=== PATIENT | male | born 1960 | race Caucasian/White ===

== ENCOUNTER 2018-03-16 02:27 | Emergency (ER) | payer BC, OTHER ==
[~2018-03-16] VITALS: Ht 182.9 cm; Wt 113.4 kg
[2018-03-16 03:15] LABS: Basophils # (auto) 0.2 uL; Basophils % (auto) 2.4 % (0.0-2.0); Eosinophils # (auto) 0.4 uL; Eosinophils % (auto) 4.8 % (0.0-7.0); Hematocrit 43.3 % (41.0-53.0); Hemoglobin 14.7 g/dL (13.5-17.5); Lymphocytes # (auto) 2.8 uL; Lymphocytes % (auto) 31.5 % (10.0-50.0); Mean Corpuscular Hemoglobin 28.7 pg (28.0-32.0); Mean Corpuscular Volume 84.5 fL (80.0-100.0); Monocytes # (auto) 0.9 uL; Monocytes % (auto) 9.7 % (0.0-12.0); Neutrophils # (auto) 4.7 uL; Neutrophils % (auto) 51.6 % (37.0-80.0); Nucleated Red Blood Cells % 0.1 %; Platelet Count (auto) 221 10^3/uL (140-450); Red Blood Cells 5.13 10^6/uL (4.5-5.90); Red Cell Distribution Width 14.5 % (11.8-14.3)
[2018-03-16 03:38] LABS: Alanine Aminotransferase 34 U/L (16-61); Albumin 3.5 g/dL (3.4-5.0); Anion Gap 9 (5-15); BUN/Creatinine Ratio 16.1; Blood Urea Nitrogen 20 mg/dL (7-18); Calcium 8.2 mg/dL (8.5-10.1); Carbon Dioxide 26 mmol/L (21-32); Chloride 112 mmol/L (98-107); GFR African American 78 mL/min; GFR Non-African American 64 mL/min; Glucose 106 mg/dL (74-106); Potassium 4.1 mmol/L (3.5-5.1); Sodium 147 mmol/L (136-145)
[2018-03-16 03:47] LABS: Alkaline Phosphatase 65 U/L (45-117); Aspartate Aminotransferase 20 U/L (15-37); Bilirubin, Total 0.2 mg/dL (0.2-1.0); Total Protein 7.1 g/dL (6.4-8.2)
[2018-03-16 05:40] VITALS: BP 142/87
== END 2018-03-16 05:45 | disposition home or self-care (01) ==
LOC: ER 02:32
DX: M54.12 Radiculopathy, cervical region (principal); M79.602 Pain in left arm
CPT/HCPCS: 36415; 70450; 71046; 80053; 84484; 85025; 93005

== ENCOUNTER 2018-11-29 08:32 | Inpatient (IN) | payer BC, OTHER ==
[~2018-11-29] VITALS: Ht 195.6 cm; Wt 111.7 kg
[2018-11-29 09:20] LABS: Basophils # (auto) 0.1 uL; Basophils % (auto) 0.6 % (0.0-2.0); Eosinophils # (auto) 0.2 uL; Eosinophils % (auto) 1.4 % (0.0-7.0); Hematocrit 44.5 % (41.0-53.0); Hemoglobin 15.2 g/dL (13.5-17.5); Lymphocytes # (auto) 1.7 uL; Lymphocytes % (auto) 11.7 % (10.0-50.0); Mean Corpuscular Hemoglobin 29.1 pg (28.0-32.0); Mean Corpuscular Hgb Conc. 34.1 g/dL (32.0-36.0); Mean Corpuscular Volume 85.4 fL (80.0-100.0); Monocytes # (auto) 1.5 uL; Monocytes % (auto) 10.8 % (0.0-12.0); Neutrophils # (auto) 10.8 uL; Neutrophils % (auto) 75.5 % (37.0-80.0); Platelet Count (auto) 214 10^3/uL (140-450); Red Blood Cells 5.21 10^6/uL (4.5-5.90); Red Cell Distribution Width 14.4 % (11.8-14.3); White Blood Cell 14.3 10^3/uL (4.4-10.8)
[2018-11-29 09:33] LABS: Albumin 3.7 g/dL (3.4-5.0); Potassium 4.4 mmol/L (3.5-5.1)
[2018-11-29 09:40] LABS: BUN/Creatinine Ratio 12.1; Bilirubin, Total 0.7 mg/dL (0.2-1.0); Calcium 8.9 mg/dL (8.5-10.1); Total Protein 7.5 g/dL (6.4-8.2)
[2018-11-29 12:44] LABS: Urine Bacteria NONE SEEN /hpf (None Seen); Urine Blood Negative /uL (Negative); Urine Mucus FEW (None Seen); Urine WBC 1 /hpf (0 - 3)
[2018-11-29] MEDS ORDERED: SODIUM CHLORIDE 0.9% 1,000 ML IVB ONE (12:52)
[2018-11-29 13:15] LABS: Magnesium 2.2 mg/dL (1.6-2.6)
[2018-11-29] MEDS ORDERED: cefTRIAXone 1GM/50ML D5W 50 ML IV ONE (13:45)
[2018-11-29] MEDS ORDERED: metroNIDAZOLE 500MG/100ML 100 ML IV ONE (13:45)
[2018-11-29] MEDS ORDERED: MORPHINE SULF INJ 2 MG/ML SYRINGE 1ML ONE (15:18)
[2018-11-29] MEDS ORDERED: ONDANSETRON HCL 4 MG/2 ML VIAL ONE (15:18)
[2018-11-29] MEDS ORDERED: ONDANSETRON HCL 4 MG/2 ML VIAL IV ONE ×2 (15:30→19:23)
[2018-11-29] MEDS ORDERED: MORPHINE SULFATE 4 MG/ML SYR/VIAL IV ONE (15:30)
[2018-11-29 16:00] LABS: Partial Thromboplastin Time 29.2 sec (23.78-33.04); Prothrombin Time 10.7 sec (9.27-12.13)
[2018-11-29] MEDS ORDERED: NITROGLYCERIN 0.4 MG SL TAB SL PRN (16:45)
[2018-11-29] MEDS ORDERED: ONDANSETRON HCL 4 MG/2 ML VIAL IV PRN (16:45)
[2018-11-29] MEDS ORDERED: MORPHINE SULFATE 4 MG/ML SYR/VIAL IV PRN (16:45)
[2018-11-29] MEDS: SODIUM CHLORIDE 0.9% 1,000 ML IV SCH (17:05)
[2018-11-29] MEDS: metroNIDAZOLE 500MG/100ML 100 ML IV SCH (17:07)
[2018-11-29] MEDS ORDERED: SUCCINYLCHOLINE CHLORIDE 20 MG/ML 10ML VIAL IV ONE (17:20)
[2018-11-29] MEDS ORDERED: MIDAZOLAM HCL 1MG/1ML-2 ML VIAL ONE (17:29)
[2018-11-29] MEDS ORDERED: fentaNYL CITRATE 100 MCG/2 ML VL ONE (17:29)
[2018-11-29] MEDS ORDERED: MEPERIDINE HCL (50 MG/ML) 1 ML VIAL ONE (17:29)
[2018-11-29] MEDS ORDERED: SODIUM CHLORIDE LOCK 10 ML ONE (17:30)
[2018-11-29] MEDS ORDERED: PROPOFOL 10 MG/ML 20 ML IV ONE (17:30)
[2018-11-29] MEDS ORDERED: ROCURONIUM 10MG/ML 10ML VIAL IV ONE (17:30)
[2018-11-29] MEDS: ACETAMINOPHEN 650 MG RECT SUPP PR PRN ×2 (17:37→23:27)
[2018-11-29] MEDS ORDERED: METOCLOPRAMIDE HCL 5MG/ml INJ 2ml VIAL IV ONE (18:45)
[2018-11-29] MEDS ORDERED: KETOROLAC TROMETH 30 MG/ML 1ML VIAL IV ONE (18:45)
[2018-11-29] MEDS ORDERED: HYDROmorphone HCL 2 MG/ML VL IV PRN (18:45)
[2018-11-29] MEDS ORDERED: ceFAZolin 1GM/50ML 50 ML IV ONE (19:23)
[2018-11-29] MEDS ORDERED: KETOROLAC TROMETH 60MG/2ML VIAL IM ONE (20:08)
[2018-11-29] MEDS ORDERED: GLYCOPYRROLATE 0.2 MG/ML 1ML VIAL ONE (20:08)
[2018-11-29] MEDS ORDERED: NEOSTIGMINE 1 MG/ML INJ (10mg/10ML VIAL) ONE (20:08)
[2018-11-29 22:15] VITALS: BP 121/68
--- NOTE | 2018-11-29 22:15 | NUR ---
Tele Admit from OR Received pt. via bed from OR. Pt. awake, alert, and oriented x4. Pt. is groggy and continuously closing eyes. No S/S of distress or SOB, pt. denies pain at this time. 2 medial abdominal incisions well approximated and opened to air. CHIQUIS drain present in lower medial abdomen, draining minimal reddish brown fluid. Pt. updated on POC, verbalized understanding. Instructed pt. on use of IS, verbalized understanding. Bed locked in lowest position, with call light within reach. Will continue to monitor Q1hr and PRN throughout the shift.
[2018-11-29 22:20] VITALS: BP 121/68
[2018-11-30] MEDS: metroNIDAZOLE 500MG/100ML 100 ML IV SCH ×5 (00:18→23:52)
[2018-11-30] MEDS: SODIUM CHLORIDE 0.9% 1,000 ML IV SCH ×3 (00:18→16:14)
[2018-11-30 05:00] VITALS: BP 107/68
[2018-11-30] MEDS: MORPHINE SULF INJ 2 MG/ML SYRINGE 1ML IV PRN ×2 (05:42→09:21)
--- NOTE | 2018-11-30 06:00 | NUR ---
CHIQUIS Drain Drained 50cc serosanguineous fluid
[2018-11-30 06:56] LABS: Basophils # (auto) 0 uL; Basophils % (auto) 0.1 % (0.0-2.0); Eosinophils # (auto) 0 uL; Hematocrit 39.3 % (41.0-53.0); Hemoglobin 13.1 g/dL (13.5-17.5); Lymphocytes # (auto) 0.8 uL; Lymphocytes % (auto) 4.9 % (10.0-50.0); Mean Corpuscular Hemoglobin 28.7 pg (28.0-32.0); Mean Corpuscular Hgb Conc. 33.2 g/dL (32.0-36.0); Mean Corpuscular Volume 86.2 fL (80.0-100.0); Monocytes # (auto) 0.6 uL; Monocytes % (auto) 3.9 % (0.0-12.0); Neutrophils # (auto) 15.1 uL; Neutrophils % (auto) 91.1 % (37.0-80.0); Platelet Count (auto) 183 10^3/uL (140-450); Red Blood Cells 4.56 10^6/uL (4.5-5.90); Red Cell Distribution Width 14.5 % (11.8-14.3); White Blood Cell 16.6 10^3/uL (4.4-10.8)
--- NOTE | 2018-11-30 07:40 | NUR ---
Opening Shift Note Assumed care of patient, Patient awake and alert laying quietly in bed. Patient is on room air with even and unlabored respirations. No S/S of distress/SOB or pain noted at this time. Bed is in lowest position, wheels are locked, side rails up x2, and call light is within reach. Patient C/O pain when getting up to the restroom D/T CHIQUIS drain moving. Patient provided with a urinal for comfort. Patient updated on POC and encouraged to call for assistance as needed. Will continue to monitor for changes Q1hr and PRN.
[2018-11-30 08:00] VITALS: BP 111/65
[2018-11-30] MEDS: PANTOPRAZOLE 40 MG/10 ML VIAL IV SCH (09:21)
[2018-11-30] MEDS: LEVOFLOXACIN 750MG 150 ML IV SCH (09:21)
--- NOTE | 2018-11-30 11:55 | NUR ---
DR. BELLA AT BEDSIDE INFORMED OF PAIN NOT BEING CONTROLLED AND ADBOMEN BEING DISTENDED. PATIENT IS TOLERATING CLEAR LIQUID DIET WITHOUT C/O N/V. PER DRTrinity HAVE PATIENT GET UP AND WALK MORE. WILL CONTROL PAIN AND THEN CARRY OUT ORDER. WILL CONTINUE TO MONITOR Q1H AND PRN.
[2018-11-30 12:00] VITALS: BP 130/70
[2018-11-30] MEDS: HYDROmorphone HCL 2 MG/ML VL IV PRN ×3 (12:16→21:20)
--- NOTE | 2018-11-30 13:30 | NUR ---
Patient up ambulating Ambulating patient around nurses station. Patient ambulating with slow steady gait. Patient made 2 laps around station. Patient tolerated well. Will continue to monitor q1h and PRN.
--- NOTE | 2018-11-30 15:30 | NUR ---
PATIENT UP AMBULATING AGAIN AROUND NURSES STATION. PATIENT TOLERATING WELL. WILL CONTINUE TO MONITOR.
[2018-11-30 16:00] VITALS: BP 110/69
--- NOTE | 2018-11-30 16:30 | NUR ---
DR. MUSTAFA AT BEDSIDE DR. MUSTAFA AT BEDSIDE ASSESSING PATIENT. INFORMED DR. MSUTAFA OF PAIN AND ABD DISTENTION. PER PATIENT IS TO BE NPO EXCEPT ICE CHIPS AND MEDS FOR NOW. AND RECEIVED ORDER FOR ATIVAN 0.5 MG IV Q6H PRN. [facility] PATIENT CURRENTLY C/O PAIN IN ABDOMEN 04/07 REQUESTING PAIN MEDICATION. WILL CONTINUE TO MONITOR Q1H AND PRN.
[2018-11-30] MEDS ORDERED: LORazepam 2MG/ML-1ML VIAL IV PRN (16:45)
--- NOTE | 2018-11-30 17:25 | NUR ---
CHIQUIS Drained Drained 50cc serosanguineous fluid. Abdominal incisions are C/D/I without signs of redness, edema, or discharge. Will continue to monitor.
--- NOTE | 2018-11-30 19:05 | NUR ---
Closing Note Patient awake and alert. No S/S of distress/SOB or pain. Care endorsed to Sophia ROSA.
[2018-11-30 22:00] VITALS: BP 120/65
[2018-12-01 05:15] VITALS: BP 122/76
[2018-12-01] MEDS: metroNIDAZOLE 500MG/100ML 100 ML IV SCH ×3 (06:26→18:29)
[2018-12-01] MEDS: HYDROmorphone HCL 2 MG/ML VL IV PRN ×2 (06:27→10:57)
[2018-12-01 06:58] LABS: Basophils # (auto) 0.1 uL; Basophils % (auto) 0.5 % (0.0-2.0); Eosinophils # (auto) 0 uL; Eosinophils % (auto) 0.3 % (0.0-7.0); Hematocrit 36.9 % (41.0-53.0); Hemoglobin 12.5 g/dL (13.5-17.5); Lymphocytes # (auto) 1.4 uL; Lymphocytes % (auto) 12.3 % (10.0-50.0); Mean Corpuscular Hemoglobin 28.9 pg (28.0-32.0); Mean Corpuscular Hgb Conc. 33.8 g/dL (32.0-36.0); Mean Corpuscular Volume 85.4 fL (80.0-100.0); Monocytes # (auto) 0.8 uL; Monocytes % (auto) 7.2 % (0.0-12.0); Neutrophils # (auto) 8.9 uL; Neutrophils % (auto) 79.7 % (37.0-80.0); Nucleated Red Blood Cells % 0.1 %; Platelet Count (auto) 183 10^3/uL (140-450); Red Blood Cells 4.32 10^6/uL (4.5-5.90); White Blood Cell 11.1 10^3/uL (4.4-10.8)
[2018-12-01 07:23] LABS: Calcium 7.8 mg/dL (8.5-10.1); Potassium 3.8 mmol/L (3.5-5.1)
[2018-12-01 07:29] LABS: Albumin 2.7 g/dL (3.4-5.0); BUN/Creatinine Ratio 16.3; Bilirubin, Total 0.4 mg/dL (0.2-1.0); Total Protein 6.5 g/dL (6.4-8.2)
--- NOTE | 2018-12-01 07:30 | NUR ---
Opening Shift Note Assumed care of patient, Patient awake and alert laying quietly in bed. Patient is on room air with even and unlabored respirations. No S/S of distress/SOB or pain noted at this time. Bed is in lowest position, wheels are locked, side rails up x2, and call light is within reach. Patient updated on POC and encouraged to call for assistance as needed. Will continue to monitor for changes Q1hr and PRN.
--- NOTE | 2018-12-01 08:45 | NUR ---
PATIENT UP AMBULATING AROUND NURSES STATION PATIENT UP AMBULATING AROUND NURSES STATION. PATIENT AMBULATING WITH STEADY GAIT. PATIENT TOLERATED WELL. WILL CONTINUE TO MONITOR Q1H AND PRN.
[2018-12-01 09:00] VITALS: BP 114/73
--- NOTE | 2018-12-01 10:45 | NUR ---
DR. MUSTAFA AT BEDSIDE DR. MUSTAFA AT BEDSIDE EVALUATING PATIENT. RECEIVED ORDER FOR CLEAR LIQUID DIET. ORDERS CARRIED OUT IN [facility]. WILL CONTINUE TO MONITOR Q1H AND PRN.
[2018-12-01] MEDS: LEVOFLOXACIN 750MG 150 ML IV SCH (10:56)
[2018-12-01] MEDS: PANTOPRAZOLE 40 MG/10 ML VIAL IV SCH (10:58)
[2018-12-01] MEDS: SODIUM CHLORIDE 0.9% 1,000 ML IV SCH ×3 (11:08→18:34)
[2018-12-01] MEDS ORDERED: HYDROmorphone HCL 2 MG/ML VL IV PRN (11:45)
[2018-12-01 13:00] VITALS: BP 126/85
--- NOTE | 2018-12-01 14:30 | NUR ---
Patient expressing extreme abdominal pain Patient expressing severe abdominal pain 10/10 and stating "It feels like something popped". Pain medication, Dilaudid, administered. Incision site assessed. No dehisce of incision noted, no edema or bleeding present. Bowel sounds present. Will notify Dr. Hair. Will continue to monitor q1h and prn.
--- NOTE | 2018-12-01 14:45 | NUR ---
RECEIVED RETURN CALL FROM DR. BELLA SPOKE WITH DR. BELLA, UPDATED HIM ON PATIENT STATUS. NO NEW ORDERS RECEIVED AT THIS TIME, CONTINUE CURRENT POC FOR NOW. PATIENT FEELING BETTER AFTER PAIN MEDICATION, PAIN NOW 5/10 IN ABDOMEN. WILL CONTINUE TO MONITOR Q1H AND PRN.
[2018-12-01 17:00] VITALS: BP 126/73
--- NOTE | 2018-12-01 19:00 | NUR ---
OPENING NOTE ASSUMED CARE OF PATIENT. PATIENT IS A&OX4. CALL LIGHT IS IN REACH, BED IS AT LOWEST LEVEL.
--- NOTE | 2018-12-01 19:02 | NUR ---
Closing Note Patient awake and alert. No S/S of distress/SOB. Report given. Care endorsed to Sophia ROSA.
[2018-12-01] MEDS: HYDROcodone-ACET 5/325MG TAB PO PRN (19:43)
[2018-12-01 22:09] VITALS: BP 142/82
[2018-12-02] MEDS: SODIUM CHLORIDE 0.9% 1,000 ML IV SCH ×2 (01:05→14:25)
[2018-12-02] MEDS: metroNIDAZOLE 500MG/100ML 100 ML IV SCH ×5 (02:28→23:55)
[2018-12-02] MEDS: HYDROcodone-ACET 5/325MG TAB PO PRN ×2 (03:22→19:47)
[2018-12-02 05:45] VITALS: BP 139/69
[2018-12-02 07:06] LABS: Basophils # (auto) 0.1 uL; Basophils % (auto) 0.7 % (0.0-2.0); Eosinophils # (auto) 0.3 uL; Eosinophils % (auto) 3.7 % (0.0-7.0); Hemoglobin 12.9 g/dL (13.5-17.5); Lymphocytes # (auto) 1.5 uL; Lymphocytes % (auto) 18.8 % (10.0-50.0); Mean Corpuscular Hgb Conc. 33.9 g/dL (32.0-36.0); Mean Corpuscular Volume 85.7 fL (80.0-100.0); Monocytes # (auto) 0.9 uL; Monocytes % (auto) 10.9 % (0.0-12.0); Neutrophils # (auto) 5.2 uL; Neutrophils % (auto) 65.9 % (37.0-80.0); Platelet Count (auto) 200 10^3/uL (140-450); Red Blood Cells 4.44 10^6/uL (4.5-5.90); Red Cell Distribution Width 14.2 % (11.8-14.3); White Blood Cell 7.9 10^3/uL (4.4-10.8)
[2018-12-02 07:24] LABS: BUN/Creatinine Ratio 11.8; Calcium 8.2 mg/dL (8.5-10.1); Potassium 4.2 mmol/L (3.5-5.1)
--- NOTE | 2018-12-02 07:25 | NUR ---
Opening Shift Note Patient awake and alert; denied pain no sign of distress. S/P appendectomy. CHIQUIS drain to mid lower abdomen draining serosanguineous fluid, insertion site no sign of infection. Patient reported mild pain 4/10 tolerable. Patient ambulates without difficulty. POC discussed. Safety measures in place. Will continue to monitor.
[2018-12-02 09:00] VITALS: BP 135/84
[2018-12-02] MEDS: LEVOFLOXACIN 750MG 150 ML IV SCH (10:00)
[2018-12-02] MEDS: PANTOPRAZOLE 40 MG/10 ML VIAL IV SCH (10:00)
[2018-12-02] MEDS ORDERED: LACTULOSE 20Gm/30ML SOLN PO ONE (11:15)
[2018-12-02] MEDS ORDERED: HYDROmorphone HCL 2 MG/ML VL IV PRN (11:15)
[2018-12-02] MEDS ORDERED: DOCUSATE SOD 100 MG CAP PO ONE (11:15)
--- NOTE | 2018-12-02 11:15 | NUR ---
LINNEA AT BEDSIDE.
--- NOTE | 2018-12-02 11:20 | NUR ---
FAMILY MEMBER DELIVERED A GIFT FOR THE PATIENT.
--- NOTE | 2018-12-02 11:37 | NUR ---
FRIEND AT BEDSIDE, PATIENT IN [employer]. PATIENT AMBULATED TO THE RESTROOM WITHOUT DISTRESS.
--- NOTE | 2018-12-02 12:00 | NUR ---
DR MOON REMY
[2018-12-02 13:00] VITALS: BP 138/75
--- NOTE | 2018-12-02 13:30 | NUR ---
PATIENT REPORTED 2 LARGE BMS; REFUSED LACTULOSE AND COLACE.
--- NOTE | 2018-12-02 14:07 | NUR ---
RE-PAGED DR MUSTAFA
--- NOTE | 2018-12-02 15:00 | NUR ---
OFF WORK NOTE PROVIDED TO PATIENT APPROVED BY DR BELLA.
--- NOTE | 2018-12-02 18:08 | NUR ---
MD MUSTAFA RETURNED CALL STATED HE WILL SEE THE PATIENT TONIGHT TO REMOVE THE CHIQUIS DRAIN PRIOR TO DISCHARGE. PATIENT UPDATED ON POC
--- NOTE | 2018-12-02 19:30 | NUR ---
Opening Shift Note Assumed care of patient, awake and alert. No S/S of distress/SOB or pain. Family at bedside. Instructed on POC and to call for assist PRN, will continue to monitor for changes Q1hr and PRN.
--- NOTE | 2018-12-02 20:56 | NUR ---
Received call from Dr. Serrano. Unable to come tonight, will come in the AM to remove drain and D/C patient.
[2018-12-02 22:00] VITALS: BP 142/75
[2018-12-03 05:00] VITALS: BP 122/74
[2018-12-03] MEDS: metroNIDAZOLE 500MG/100ML 100 ML IV SCH (05:40)
[2018-12-03] MEDS: SODIUM CHLORIDE 0.9% 1,000 ML IV SCH (05:40)
--- NOTE | 2018-12-03 07:00 | NUR ---
Opening Shift Note Assumed care of patient, awake and alert. No S/S of distress/SOB or pain. Instructed on POC and to call for assist PRN, will continue to monitor for changes Q1hr and PRN.
--- NOTE | 2018-12-03 07:06 | NUR ---
25 ml of serosanguineous drainage from CHIQUIS drain removed. No c/o pain throughout the night and no temp noted in the am.
[2018-12-03 08:00] VITALS: BP 128/75
[2018-12-03 08:36] VITALS: BP 128/75
--- NOTE | 2018-12-03 09:01 | NUR ---
DR. MUSTAFA PAGED CONCERNING PATIENT'S DRAIN REMOVAL FOR DISCHARGE. WILL AWAIT FURTHER COMMUNICATION FROM DR. MUSTAFA.
[2018-12-03] MEDS: PANTOPRAZOLE 40 MG/10 ML VIAL IV SCH (10:19)
[2018-12-03] MEDS: LEVOFLOXACIN 750MG 150 ML IV SCH (10:19)
--- NOTE | 2018-12-03 11:15 | NUR ---
DR. MUSTAFA BEDSIDE TO REMOVE CHIQUIS DRAIN.
[2018-12-03 11:20] VITALS: BP 128/75
--- NOTE | 2018-12-03 11:20 | NUR ---
Discharge instructions given as ordered. Encourage to follow up with PMD as instructed. All questions and concerns addressed. Patient verbalized understanding. IV removed with catheter intact, pressure dressing applied, CHIQUIS drain removed by Dr. Serrano. Patient ambulated to vehicle with all personal belongings, accompanied by family member. No distress noted at time of departure.
== END 2018-12-03 11:20 | disposition home or self-care (01) | DRG 853 ==
LOC: ER 08:32 → TELE 16:40 → TELE-EAST 22:23 → EAST 12-01 11:53
PROVIDERS: ADMIT Nurse Practitioner Acute Care; ATTEND Internal Medicine
PROC: 0W9J40Z Drainage of Pelvic Cavity with Drainage Device, Percutaneous Endoscopic Approach (ICD-10-PCS; 2018-11-29)
PROC: 0DTJ4ZZ Resection of Appendix, Percutaneous Endoscopic Approach (ICD-10-PCS; principal; 2018-11-29 19:25)
DX: A41.9 Sepsis, unspecified organism (principal); K35.33 Acute appendicitis with perforation, localized peritonitis, and gangrene, with abscess; K80.00 Calculus of gallbladder with acute cholecystitis without obstruction; K57.90 Diverticulosis of intestine, part unspecified, without perforation or abscess without bleeding; E66.9 Obesity, unspecified; K38.1 Appendicular concretions; K76.0 Fatty (change of) liver, not elsewhere classified; Z68.29 Body mass index [BMI] 29.0-29.9, adult
CPT/HCPCS: 36415; 71045; 71046; 74176; 80048; 80053; 81001; 82150; 83690; 83735; 83880; 85025; 85610; 85730; 86850; 86900; 86901; 93005; 94761; 96365; 96367; A6257; C9113; G0378; J0330; J0690; J0696; J1885; J1956; J2250; J2405; J2704; J3490

== ENCOUNTER 2025-01-19 15:20 | Emergency (ER) | payer BC, OTHER ==
[~2025-01-19] VITALS: Ht 182.9 cm; Wt 105.0 kg
[2025-01-19 15:33] VITALS: PULSE 73; RESP 16; O2SAT 91
[2025-01-19] MEDS: chlordiazePOXIDE HCL 25 MG CAP PO ONE (16:00)
[2025-01-19] MEDS: LORazepam 2MG/ML-1ML VIAL IV ONE (16:00)
--- NOTE | 2025-01-19 16:36 | ED.PDOC ---
Mult. trauma (HPI) HPI Comments 64 year old male DANITA presents to the ED with chief complaint of head injury s/p fall. EMS reports that the patient was at work in [employer] when he had accidentally fell from approximately the 3rd rung on his ladder, hitting the back of his head on cement. EMS relays that the patient did not lose consciousness after the injury. EMS states patient has been slow to respond since the injury and is currently A/O x 2. Patient denies any LOC, nausea, vomiting, back injury, or neck injury. He does note a severe occipital headache and dizziness. Chief Complaint: Head Injury Time Seen by MD: 16:30 Primary Care Provider: SVETA Reviewed notes: Nurses Notes, Limb Driver Notes, Medications, Allergies Allergies: Coded Allergies: NO KNOWN ALLERGIES (Unverified , 03/16/18) Home Meds No Active Prescriptions or Reported Meds Information Source: Patient, Emergency Med Personnel Mode of Arrival: EMS Severity: Moderate Timing: Hours Duration: Since onset Prehospital treatment: None Location: Head Mechanism: Fall Past Medical History PAST MEDICAL HISTORY: High Lipids Surgical History: Denies all surgeries Family History Family History: Unknown Social History Smoker: Non-Smoker Alcohol: Denies ETOH Use Drugs: Denies Drug Use Lives In: Home Constitutional: denies: chills, diaphoresis, fatigue, fever, malaise, sweats, weakness, others EENTM: denies: blurred vision, double vision, ear bleeding, ear discharge, ear drainage, ear pain, ear ringing, eye pain, eye redness, hearing loss, mouth pain, mouth swelling, nasal discharge, nose bleeding, nose congestion, nose pain, photophobia, tearing, throat pain, throat swelling, voice changes, others Respiratory: denies: cough, hemoptysis, orthopnea, SOB at rest, shortness of breath, SOB with excertion, stridor, wheezing, others Cardiovascular: denies: chest pain, dizzy spells, diaphoresis, Dyspnea on exertion, edema, irregular heart beat, left arm pain, lightheadedness, palpitations, PND, syncope, others Gastrointestinal: denies: abdomen distended, abdominal pain, blood streaked bowels, constipated, diarrhea, dysphagia, difficulty swallowing, hematemesis, melena, nausea, poor appetite, poor fluid intake, rectal bleeding, rectal pain, vomiting, others Genitourinary: denies: burning, dysuria, flank pain, frequency, hematuria, incontinence, penile discharge, penile sore, pain, testicle pain, testicle swelling, urgency, others Neurological: denies: dizziness, fainting, headache, left sided numbness, left sided weakness, numbness, paresthesia, pre-existing deficit, right sided numbness, right sided weakness, seizure, speech problems, tingling, tremors, weakness, others Musculoskeletal: denies: back pain, gout, joint pain, joint swelling, muscle pain, muscle stiffness, neck pain, others Integumetry: reports: laceration (To scalp); denies: bruises, change in color, change in hair/nails, dryness, lesions, lumps, rash, wounds, others Allergic/Immunocompromised: denies: Difficulty Healing, Frequent Infections, Hives, Itching, others Hematologic/Lymphatic: denies: anemia, blood clots, easy bleeding, easy bruising, swollen glands, others Endocrine: denies: excessive hunger, excessive sweating, excessive thirst, excessive urination, flushing, intolerance to cold, intolerance to heat, unexplained weight gain, unexplained weight loss, others Psychiatric: denies: anxiety, bipolar disorder, depression, hopeless, panic disorder, schizophrenia, sleepless, suicidal, others All Other Systems: Reviewed and Negative Physical Exam General Appearance: No Apparent Distress HEENT: PERRL/EOMI, Other (Approximate 4 x 4 cm Occipital abrasion with underlying soft tissue swelling/hematoma) Neck: Full Range of Motion, Supple, Other (Midline and paraspinal soft tissue neck tenderness) Respiratory: Chest Non-Tender, Lungs Clear, No Accessory Muscle Use, No Respiratory Distress, Normal Breath Sounds Cardiovascular: No Edema, No JVD, Regular Rate/Rhythm Breast Exam: Deferred Gastrointestinal: Non Tender, Soft Genitalia: Deferred Pelvic: Deferred Rectal: Deferred Extremities: Normal range of motion, Non-tender, No pedal edema Neurologic: Alert (Oriented x2), Normal Affect, Normal Mood, Other (Moves all extremities. No gross focal deficit.) Cerebellar Function: NOT DONE Reflexes: NOT DONE Skin: Dry, Warm, Other (Occipital abrasion/hematoma, right elbow superficial abrasion without underlying bony tenderness) Lymphatic: NOT DONE Was a procedure done? Was a procedure done?: No Differential Diagnosis Multiple Trauma: Closed Head Injury, Fractures, Cerebral Contusion, Spine Injury, Hematoma, Encephalopathy Neck Injury: Cervical Muscle Spasm, Cervical Sprain, Cervical Strain, Cervical Fracture, Spinal Cord Injury X-Ray, Labs, Meds, VS Vital Signs Date Time Temp Pulse Resp B/P (MAP) Pulse Ox O2 Delivery O2 Flow Rate FiO2 01/19/25 20:00 71 16 141/70 (93) 94 01/19/25 18:01 70 15 148/77 (100) 94 01/19/25 18:00 70 16 148/77 (100) 94 01/19/25 17:00 66 16 154/86 (108) 93 01/19/25 16:06 72 01/19/25 15:33 73 16 91 Room Air* 0 21 01/19/25 15:33 98.1 73 16 161/90 (113) 91 98.1 01/19/25 15:23 98.1 74 18 169/102 (124) 98 98.1 Lab Test 01/19/25 18:30 01/19/25 16:19 Range/Units Urine Color Light-yellow Yellow Urine Clarity Clear Clear Urine pH 5.5 5.0-9.0 Urine Specific [place] 1.015 1.001-1.035 Urine Protein Negative Negative Urine Ketones Negative Negative Urine Blood Negative Negative /uL Urine Nitrite Negative Negative Urine Bilirubin Negative Negative Urine Urobilinogen Normal Negative mg/dL Urine Leukocyte Esterase Negative Negative /uL Urine RBC <1 0 - 3 /hpf Urine Microscopic WBC 1 0-3 /HPF Urine Squamous Epithelial Cells None seen <5 /hpf Urine Bacteria None seen None Seen /hpf Urine Glucose Normal Normal mg/dL White Blood Count 7.8 4.4-10.8 10^3/uL Red Blood Count 5.08 4.5-5.90 10^6/uL Hemoglobin 14.4 13.5-17.5 g/dL Hematocrit 42.9 41.0-53.0 % Mean Corpuscular Volume 84.6 80.0-100.0 fL Mean Corpuscular Hemoglobin 28.4 28.0-32.0 pg Mean Corpuscular Hemoglobin Concent 33.5 32.0-36.0 g/dL Red Cell Distribution Width 14.6 H 11.8-14.3 % Platelet Count 214 140-450 10^3/uL Mean Platelet Volume 7.7 6.9-10.8 fL Neutrophils (%) (Auto) 61.0 37.0-80.0 % Lymphocytes (%) (Auto) 24.6 10.0-50.0 % Monocytes (%) (Auto) 9.2 0.0-12.0 % Eosinophils (%) (Auto) 4.1 0.0-7.0 % Basophils (%) (Auto) 1.1 0.0-2.0 % Neutrophils # (Auto) 4.8 1.6-8.6 10 ^3/uL Lymphocytes # (Auto) 1.9 0.4-5.4 10 ^3/uL Monocytes # (Auto) 0.7 0-1.3 10 ^3/uL Eosinophils # (Auto) 0.3 0-0.8 10 ^3/uL Basophils # (Auto) 0.1 0-0.2 10 ^3/uL Nucleated Red Blood Cells 0.1 % Sodium Level 142 136-145 mmol/L Potassium Level 3.9 3.5-5.1 mmol/L Chloride Level 111 H 98-107 mmol/L Carbon Dioxide Level 24 20-31 mmol/L Anion Gap 7 5-15 Blood Urea Nitrogen 18 9-23 mg/dL Creatinine 1.11 0.700-1.30 mg/dL Glomerular Filtration Rate Calc 75 >90 mL/min BUN/Creatinine Ratio 16.2 10.0-20.0 Serum Glucose 99 74-106 mg/dL Calcium Level 10.1 8.7-10.4 mg/dL PROCEDURE(s): HWOCT - HEAD WITHOUT CONTRAST REASON: head injury s/p fall ORDER NUMBER(s): [id number], ACCESSION NUMBER(s): [id number] CLINICAL INFORMATION: Head injury status post fall. TECHNIQUE: Axial imaging was obtained through the brain without contrast. Coronal and sagittal reformatted images were obtained, reviewed, and stored. One or more of the following dose reduction techniques were used: Automated exposure control. Adjustment of mA and/or kV according to patient size. CTDIvol = 64.08 mGy DLP = 1262.21 mGy-cm COMPARISON: None FINDINGS: There is no acute intracranial hemorrhage or extraaxial fluid collection. No mass effect or midline shift. The ventricles and sulci are within normal limits in size for age. Basal cisterns are patent. The calvarium is unremarkable. Mucosal thickening and partial opacification of the paranasal sinuses. IMPRESSION: 1. No CT evidence of acute intracranial abnormality. 2. Paranasal sinusitis. EDURE(s): CS2 - CERVICAL WITHOUT CONTRAST REASON: neck pain s/p fall ORDER NUMBER(s): [id number], ACCESSION NUMBER(s): [id number] CLINICAL HISTORY: neck pain status post fall injury COMPARISON: None TECHNIQUE: Axial CT images of the cervical spine were obtained without IV contrast. Coronal and sagittal reformatted images were obtained. All CT scans at this medical facility are performed using dose modulation techniques as appropriate to a performed exam including the following: Automated exposure control was utilized; adjustment of the MA and/or KV according to patient size; and use of iterative reconstruction technique. CTDIvol = 26.98, 0.41, 0.07 mGy DLP = 591.7 mGy-cm FINDINGS: Bones: Straightening of the normal cervical lordosis. Minimal retrolisthesis of C3 on C4. Vertebral body heights are maintained. Posterior elements are intact. No acute fracture. Severe disc space narrowing at C3-C4 with associated endplate sclerosis and endplate spurring. Moderate disc space narrowing at C5-C6 with associated endplate sclerosis and endplate spurring. Multilevel facet and uncinate hypertrophy with areas of moderate neural foraminal stenosis. Paraspinal soft tissues: Prevertebral and paraspinal soft tissues are unremarkable. Other: No other significant findings. IMPRESSION: 1. No evidence of acute fracture in the cervical spine. 2. Straightening of the normal cervical lordosis with minimal retrolisthesis of C3 on C4. 3. Degenerative disc disease and facet disease in the cervical spine as described above. X-Ray, Labs, Meds, VS Comment 64-year-old male with a history of dyslipidemia presenting with occipital head pain, hematoma and altered mental status after a fall from a ladder. Vitals remarkable for BP 169/102 Exam remarkable for an occipital abrasion/hematoma , midline and paraspinal cervical tenderness Rhythm strip independently interpreted by me: Sinus rhythm, rate 74, no ectopy. CT head IMPRESSION: 1. No CT evidence of acute intracranial abnormality. 2. Paranasal sinusitis. CT cervical spine IMPRESSION: 1. No evidence of acute fracture in the cervical spine. 2. Straightening of the normal cervical lordosis with minimal retrolisthesis of C3 on C4. 3. Degenerative disc disease and facet disease in the cervical spine as described above. CBC, basic metabolic panel and UA unremarkable Patient treated with the following in the ED: Tdap 0.5 mL, Toradol 30 mg IV, [place] 5/325 mg 2 tabs p.o., Zofran 4 mg IV, meclizine 50 mg p.o. On re-evaluation, patient is oriented x4 but still feels extremely dizzy. Plan is to admit/transfer the patient for observation and Neurology evaluation. Case discussed with Dr. Mo at [facility], who will attempt to arrange for transfer to [place]. EKG has been ordered per Dr. Mo's request. Authorization [id number] Time of 1ST Reevaluation: 17:30 Reevaluation 1ST: Unchanged Time of 2ND Reevaluation: 20:45 Reevaluation 2ND: Improved Patient Education/Counseling: Diagnosis, Treatment Family Education/Counseling: No Family Present Departure 1 Departure Time of Disposition: 20:56 Impression: Primary Impression: Head injury Qualified Codes: S09.90XA - Unspecified injury of head, initial encounter Additional Impression: Traumatic encephalopathy Disposition: ADMITTED INPATIENT Admit to: Tele Condition: Guarded e-Prescriptions No Active Prescriptions or Reported Meds Critical Care Note Critical Care Time?: No Stability Stability form required: No Heart Score Heart Score: Heart Score Response (Comments) Value History N/A 0 EKG N/A 0 Age N/A 0 Risk Factors N/A 0 Troponin N/A 0 Total 0 I personally scribed for JESI SHAH MD ([email or web address]) on 01/19/25 at 16:36. Electronically submitted by Oumar Penn ([email or web address]). I personally scribed for JESI SHAH MD ([email or web address]) on 01/19/25 at 19:46. Electronically submitted by Franko Muñoz ([email or web address]). JESI SHAH MD Jan 19, 2025 16:36
--- NOTE | 2025-01-19 16:40 | DVH ---
CLINICAL INFORMATION: Head injury status post fall. TECHNIQUE: Axial imaging was obtained through the brain without contrast. Coronal and sagittal refo rmatted images were obtained, reviewed, and stored. One or more of the following dose reduction tech niques were used: Automated exposure control. Adjustment of mA and/or kV according to patient size. CTDIvol = 64.08 mGy DLP = 1262.21 mGy-cm COMPARISON: None FINDINGS: There is no acute intracranial hemorrhage or extraaxial fluid collection. No mass effect or midline s hift. The ventricles and sulci are within normal limits in size for age. Basal cisterns are patent. The calvarium is unremarkable. Mucosal thickening and partial opacification of the paranasal sinu ses. IMPRESSION: 1. No CT evidence of acute intracranial abnormality. 2. Paranasal sinusitis.
[2025-01-19 16:46] LABS: Basophils # (auto) 0.1 10 ^3/uL (0-0.2); Basophils % (auto) 1.1 % (0.0-2.0); Eosinophils # (auto) 0.3 10 ^3/uL (0-0.8); Eosinophils % (auto) 4.1 % (0.0-7.0); Hematocrit 42.9 % (41.0-53.0); Hemoglobin 14.4 g/dL (13.5-17.5); Lymphocytes # (auto) 1.9 10 ^3/uL (0.4-5.4); Lymphocytes % (auto) 24.6 % (10.0-50.0); Mean Corpuscular Hemoglobin 28.4 pg (28.0-32.0); Mean Corpuscular Hgb Conc. 33.5 g/dL (32.0-36.0); Mean Corpuscular Volume 84.6 fL (80.0-100.0); Monocytes # (auto) 0.7 10 ^3/uL (0-1.3); Monocytes % (auto) 9.2 % (0.0-12.0); Neutrophils # (auto) 4.8 10 ^3/uL (1.6-8.6); Nucleated Red Blood Cells % 0.1 %; Platelet Count (auto) 214 10^3/uL (140-450); Red Blood Cells 5.08 10^6/uL (4.5-5.90); Red Cell Distribution Width 14.6 % (11.8-14.3); White Blood Cell 7.8 10^3/uL (4.4-10.8)
--- NOTE | 2025-01-19 16:54 | DVH ---
CLINICAL HISTORY: neck pain status post fall injury COMPARISON: None TECHNIQUE: Axial CT images of the cervical spine were obtained without IV contrast. Coronal and sagit john reformatted images were obtained. All CT scans at this medical facility are performed using dose modulation techniques as appropriate to a performed exam including the following: Automated exposure control was utilized; adjustment of the MA and/or KV according to patient size; and use of iterative reconstruction technique. CTDIvol = 26.98, 0.41, 0.07 mGy DLP = 591.7 mGy-cm FINDINGS: Bones: Straightening of the normal cervical lordosis. Minimal retrolisthesis of C3 on C4. Vertebral b joan heights are maintained. Posterior elements are intact. No acute fracture. Severe disc space narro wing at C3-C4 with associated endplate sclerosis and endplate spurring. Moderate disc space narrowing at C5-C6 with associated endplate sclerosis and endplate spurring. Multilevel facet and uncinate hyp ertrophy with areas of moderate neural foraminal stenosis. Paraspinal soft tissues: Prevertebral and paraspinal soft tissues are unremarkable. Other: No other significant findings. IMPRESSION: 1. No evidence of acute fracture in the cervical spine. 2. Straightening of the normal cervical lordosis with minimal retrolisthesis of C3 on C4. 3. Degenerative disc disease and facet disease in the cervical spine as described above.
[2025-01-19 16:58] LABS: Anion Gap 7 (5-15); Carbon Dioxide 24 mmol/L (20-31); Potassium 3.9 mmol/L (3.5-5.1); Sodium 142 mmol/L (136-145)
[2025-01-19 16:59] LABS: Calcium 10.1 mg/dL (8.7-10.4)
[2025-01-19 17:01] LABS: Chloride 111 mmol/L (98-107)
[2025-01-19 17:04] LABS: BUN/Creatinine Ratio 16.2 (10.0-20.0); Blood Urea Nitrogen 18 mg/dL (9-23); Glucose 99 mg/dL (74-106)
--- NOTE | 2025-01-19 18:50 | ECG ---
[facility] Test Date: 2025-01-19 Test Time: 16:02:21 Pat Name: POWER HAWK Department: ED Room: Gender: M Shallot Packer: JAVI : 1960 Requested By: JESI ADAMS Order Number: [id number] Reading MD: Measurements Intervals [place] Rate: 72 P: 24 [place]: 176 QRS: -16 QRSD: 103 T: 66 QT: 396 QTc: 434 Interpretive Statements Sinus rhythm Borderline left axis deviation Please click the below link to view image of tracing.
[2025-01-19 19:14] LABS: Urine Bacteria None Seen /hpf (None Seen)
[2025-01-19 19:28] LABS: Urine Blood Negative /uL (Negative); Urine Clarity Clear (Clear); Urine Color Light-Yellow (Yellow); Urine Protein, UAD Negative (Negative); Urine Specific Gravity 1.015 (1.001-1.035); Urine Squamous Epithelial Cell None Seen /hpf (<5); Urine Urobilinogen Normal (Negative); Urine WBC 1 /HPF (0-3); Urine pH 5.5 (5.0-9.0)
[2025-01-19 19:38] VITALS: PULSE 73; RESP 16; O2SAT 91
[2025-01-19] MEDS: ONDANSETRON HCL 4 MG/2 ML VIAL IV ONE (21:10)
[2025-01-19] MEDS: HYDROcodone-ACET 5/325MG TAB PO ONE (21:11)
[2025-01-19] MEDS: KETOROLAC TROMETH 30 MG/ML 1ML VIAL IV ONE (21:16)
[2025-01-19] MEDS: MECLIZINE HCL 25 MG TAB PO ONE (21:17)
[2025-01-19] MEDS: TETANUS-DIPTH-ACEL PERTUSSIS 0.5ML SYR Tdap IM ONE (21:18)
[2025-01-19 22:00] VITALS: BP 148/70; PULSE 71; RESP 18; TEMP 98.4; O2SAT 96
== END 2025-01-19 22:33 | disposition short-term general hospital (02) ==
LOC: EDBD 15:20 → ER 15:20
DX: S09.90XA Unspecified injury of head, initial encounter (principal); F07.81 Postconcussional syndrome; E78.5 Hyperlipidemia, unspecified; W11.XXXA Fall on and from ladder, initial encounter; Y93.89 Activity, other specified; Y92.89 Other specified places as the place of occurrence of the external cause; Y99.8 Other external cause status
CPT/HCPCS: 36415; 70450; 72125; 80048; 81001; 85025; 90471; 90715; 93005; 96374; 99285; J1885; J8597